=== PATIENT | female | born 1995 | race Caucasian/White ===

== ENCOUNTER 2018-03-18 23:31 | Emergency (ER) | payer MEDICAID ==
[2018-03-18] MEDS ORDERED: NS 1,000 ML IV ONE (23:41)
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
[2018-03-19] MEDS ORDERED: IOPAMIDOL (ISOVUE-300) 100 ML BTL ONE (00:14)
[2018-03-19] MEDS ORDERED: HYDROmorphONE/DILAUDID 2 MG/ML INJ IVP ONE (00:14)
[2018-03-19] MEDS ORDERED: HYDROmorphONE/DILAUDID 1 MG/ML INJ ONE (00:17)
[2018-03-19 00:21] LABS: PLATELET COUNT 388 10^3/uL (150-400)
[2018-03-19] MEDS ORDERED: HYDROmorphONE/DILAUDID 1 MG/ML INJ IVP ONE (00:57)
[2018-03-19] MEDS ORDERED: KETOROLAC 15 MG/1 ML SDV IVP ONE (01:20)
[2018-03-19] MEDS ORDERED: ONDANSETRON 4 MG/2 ML VIAL IVP ONE (03:03)
[2018-03-19 03:43] VITALS: BP 138/72
== END 2018-03-19 03:42 | disposition home or self-care (01) ==
DX: K59.01 Slow transit constipation (principal); E86.9 Volume depletion, unspecified; Z91.040 Latex allergy status
CPT/HCPCS: 96374; J1170; J1885; J2405; Q9967

== ENCOUNTER 2018-04-16 | Emergency (ER) | payer MEDICAID | END 2018-04-16 17:51 | disposition home or self-care (01) | DX: R10.11 Right upper quadrant pain (principal) ==

== ENCOUNTER 2018-04-21 10:19 | Emergency (ER) | payer MEDICAID ==
[2018-04-21 11:09] LABS: PLATELET COUNT 402 10^3/uL (150-400)
[2018-04-21 12:52] VITALS: BP 116/77
--- NOTE | 2018-04-21 13:11 | EDPHY ---
H & P Time Seen by Provider: 04/21/18 10:24 HPI/ROS: CHIEF COMPLAINT: Abdominal pain HISTORY OF PRESENT ILLNESS: 23-year-old female presents to the emergency department with abdominal pain. She states that she has had ongoing abdominal pain for years however worse over last 1 week. She was seen in the emergency department 1 week ago and had imaging studies which was within normal limits. She denies urinary symptoms. She has also been seen by her primary care provider 2 days ago and is scheduled to see a factory expert. She currently denies pain or chest or difficulty breathing. No vomiting. She has had some diarrhea and loose bowel movements over last 1 week. No antibiotics. No recent travel. No known ill contacts. REVIEW OF SYSTEMS: Constitutional: No fever, no chills. Eyes: No double or blurry vision. ENT: No sore throat. Respiratory: No cough, no shortness of breath. Cardiac: No chest pain. Gastrointestinal: Abdominal pain. No vomiting. Diarrhea Genitourinary: No dysuria. Musculoskeletal: No neck or back pain. Skin: No rashes. Neurological: No headache. Past Medical/Surgical History: Traumatic brain injury, left-sided deficits chronic Social History: recently moved here from [place] Smoking Status: Never smoked Physical Exam: General Appearance: Alert, no distress. Afebrile. Eyes: Pupils equal and round. Extraocular motions are all intact. ENT: Mouth: Mucous membranes moist. Respiratory: No wheezing, rhonchi, or rales, lungs are clear to auscultation. Cardiovascular: Regular rate and rhythm. Gastrointestinal: Abdomen is soft and nontender, no masses, no rebound or guarding, bowel sounds normal. Mild bilateral CVA tenderness worse on the right compared to the left. Neurological: Alert and oriented x 3, cranial nerves II through XII grossly intact Skin: Warm and dry, no rashes. Musculoskeletal: Nontender to palpate along the cervical, thoracic or lumbar spine. Neck is supple. Extremities: Full range of motion and no peripheral edema. Psychiatric: Patient is oriented X 3, there is no agitation. Constitutional: Initial Vital Signs Temperature (C) 36.8 C 04/21/18 10:26 Heart Rate 82 04/21/18 10:26 Respiratory Rate 18 04/21/18 10:26 Blood Pressure 93/65 L 04/21/18 10:26 O2 Sat (%) 96 04/21/18 10:26 O2 Delivery Mode Room Air Allergies/Adverse Reactions: latex Allergy (Verified 04/21/18 10:24) Home Medications: Medication Instructions Recorded Dicyclomine [Bentyl 20 MG (*)] 20 mg PO QID PRN #15 tab 04/16/18 Hydrocodone/APAP 5/325 [[place] 1 - 2 tab PO Q4 PRN #10 tab 04/16/18 5/325 (RX)] Cephalexin [Keflex] 500 mg PO QID #40 cap 04/21/18 Medical Decision Making - Diagnostics Imaging Results: Imaging Impressions Abdomen X-Ray 04/21/18 11:50 Impression: Constipation. No obstruction. Imaging: I viewed and interpreted images myself ED Course/Re-evaluation: 23-year-old female presents to the emergency department with chronic abdominal pain. Patient's abdominal exam is unremarkable. I do not think repeat CT imaging is indicated. Do not think ultrasound is indicated. Urinalysis reveals pyelonephritis. Urine cultures pending. She was given 1 g of ceftriaxone IV and will be discharged with oral Keflex. Remainder laboratory exams are unremarkable. She has a scheduled appointment with factory expert in a few weeks. manager transfusion will see if they are able to arrange for a sooner follow-up appointment. Patient feels comfortable being discharged home. She had no episodes of vomiting in the emergency department. She is hungry and eating and drinking in the emergency department. X-rays were obtained per her request which revealed evidence of constipation without evidence of obstruction. She was encouraged to use high-fiber diet. Differential Diagnosis: Including but not limited to constipation, gastroenteritis, GERD, peptic ulcer disease, cholecystitis, cholelithiasis - Data Points Laboratory Results: Laboratory Results 04/21/18 10:35 04/21/18 10:35 04/21/18 04/21/18 04/21/18 11:12 10:35 10:35 WBC RBC Hgb Hct MCV MCH MCHC RDW Plt Count MPV Neut % (Auto) Lymph % (Auto) [place] % (Auto) Eos % (Auto) Baso % (Auto) Nucleat RBC Rel Count Absolute Neuts (auto) Absolute Lymphs (auto) Absolute Monos (auto) Absolute Eos (auto) Absolute Basos (auto) Absolute Nucleated RBC Immature Gran % Immature Gran # Sodium 142 mEq/L mEq/L (135-145) Potassium 4.5 mEq/L mEq/L (3.3-5.0) Chloride 109 mEq/L mEq/L (97-110) Carbon Dioxide 22 mEq/l mEq/l (22-31) Anion Gap 11 mEq/L mEq/L (8-16) BUN 10 mg/dL mg/dL (7-23) Creatinine 0.7 mg/dL mg/dL (0.6-1.0) Estimated GFR > 60 Glucose 88 mg/dL mg/dL (70-100) Calcium 10.0 mg/dL mg/dL (8.5-10.4) Beta HCG, Qual NEGATIVE Urine Color [place] Urine Appearance MODERATELY TURBID Urine pH 5.0 (5.0-7.5) Ur Specific [place] 1.024 (1.002-1.030) Urine Protein NEGATIVE (NEGATIVE) Urine Ketones NEGATIVE (NEGATIVE) Urine Blood NEGATIVE (NEGATIVE) Urine Nitrate NEGATIVE (NEGATIVE) Urine Bilirubin NEGATIVE (NEGATIVE) Urine Urobilinogen 2.0 EU H EU (0.2-1.0) Ur Leukocyte Esterase 3+ H (NEGATIVE) Urine RBC 10-15 /hpf H /hpf (0-3) Urine WBC 50-182 /hpf H /hpf (0-3) Ur Epithelial Cells 3+ /lpf H /lpf (NONE-1+) Urine Bacteria 2+ /hpf H /hpf (NONE SEEN) Urine Mucus TRACE /lpf /lpf (NONE-1+) Urine Glucose NEGATIVE (NEGATIVE) 04/21/18 10:35 WBC 7.72 10^3/uL 10^3/uL (3.80-9.50) RBC 4.77 10^6/uL 10^6/uL (4.18-5.33) Hgb 13.3 g/dL g/dL (12.6-16.3) Hct 41.0 % % (38.0-47.0) MCV 86.0 fL fL (81.5-99.8) MCH 27.9 pg pg (27.9-34.1) MCHC 32.4 g/dL g/dL (32.4-36.7) RDW 17.3 % H % (11.5-15.2) Plt Count 402 10^3/uL H 10^3/uL (150-400) MPV 10.6 fL fL (8.7-11.7) Neut % (Auto) 51.0 % % (39.3-74.2) Lymph % (Auto) 36.8 % % (15.0-45.0) [place] % (Auto) 7.3 % % (4.5-13.0) Eos % (Auto) 4.3 % % (0.6-7.6) Baso % (Auto) 0.5 % % (0.3-1.7) Nucleat RBC Rel Count 0.0 % % (0.0-0.2) Absolute Neuts (auto) 3.94 10^3/uL 10^3/uL (1.70-6.50) Absolute Lymphs (auto) 2.84 10^3/uL 10^3/uL (1.00-3.00) Absolute Monos (auto) 0.56 10^3/uL 10^3/uL (0.30-0.80) Absolute Eos (auto) 0.33 10^3/uL 10^3/uL (0.03-0.40) Absolute Basos (auto) 0.04 10^3/uL 10^3/uL (0.02-0.10) Absolute Nucleated RBC 0.00 10^3/uL 10^3/uL (0-0.01) Immature Gran % 0.1 % % (0.0-1.1) Immature Gran # 0.01 10^3/uL 10^3/uL (0.00-0.10) Sodium Potassium Chloride Carbon Dioxide Anion Gap BUN Creatinine Estimated GFR Glucose Calcium Beta HCG, Qual Urine Color Urine Appearance Urine pH Ur Specific [place] Urine Protein Urine Ketones Urine Blood Urine Nitrate Urine Bilirubin Urine Urobilinogen Ur Leukocyte Esterase Urine RBC Urine WBC Ur Epithelial Cells Urine Bacteria Urine Mucus Urine Glucose Medications Given: Discontinued Medications Ceftriaxone Sodium/Dextrose (Rocephin 1 Gm (Premix)) 50 mls @ 100 mls/hr IV EDNOW ONE PRN Reason: Protocol Stop: 04/21/18 12:19 Last Admin: 04/21/18 12:01 Dose: 50 mls Departure - Departure Disposition: Home, Routine, Self-Care Clinical Impression: Acute pyelonephritis Condition: Good Instructions: Cephalexin (By mouth), Kidney Infection (ED) Additional Instructions: Keflex 500 mg 4 times daily for 10 days. Call [phone] for the results of your urine culture in 48 hr. Return to the emergency department sooner if he developed fever, vomiting, worsening back pain, abdominal pain, or if you feel worse in any way. Follow-up with [facility] as discussed. They should be calling you on Monday to arrange for a sooner follow-up appointment. If you are having trouble obtaining this appointment, please call our housing case manager in the emergency department. Referrals: Maureen Bernal MD [[facility] Primary Care Provider] - 2-3 days, if not improved ( Primary care provider telephone solicitor supervisor) Prescriptions: Cephalexin [Keflex] 500 mg PO QID #40 cap
--- NOTE | 2018-04-21 15:05 | ASMTCMCOM ---
CM Note CM Note Notes: Pt presented to the Emergency Department with continued abdominal/back pain. Asked to see pt by ROD Argueta regarding follow up appointment with [facility]. Met with pt - pt to see Dr. Owusu on May 14. Pt already saw her PCP last and has a referral for her upcoming GI appt. Kari requesting CM move GI appointment up from May 14 given pt's continued symptoms and three recent ED visits. Call placed to [facility] . Left message with answering service requesting [facility] call pt on Monday04/23/18 to move pt appointment to soonest date possible. Update provided to pt. Pt also provided with [facility] and Case Management's phone numbers to call for any further issues changing appointment date/time. Pt verbalized understanding. CM available for any further issues or concerns. Date Signed: 04/21/2018 03:03 PM Electronically Signed By:Mayi Ramon RN
== END 2018-04-21 13:21 | disposition home or self-care (01) ==
DX: N10 Acute pyelonephritis (principal)
CPT/HCPCS: 96374; J0696

== ENCOUNTER 2018-06-13 08:35 | Emergency (ER) | payer MEDICAID ==
[2018-06-13] MEDS ORDERED: MAG HYDROX/AL HYDROX/SIMETH 30 ML UDCUP PO ONE (09:06)
[2018-06-13] MEDS ORDERED: LIDOCAINE 2% VISCOUS 15 ML UDCUP PO ONE (09:06)
[2018-06-13] MEDS ORDERED: HYOSCYAMINE SULFATE 0.125 MG TAB PO ONE (09:06)
[2018-06-13] MEDS ORDERED: ONDANSETRON 4 MG/2 ML VIAL IVP ONE (09:06)
[2018-06-13] MEDS ORDERED: NS 1,000 ML IV ONE (09:06)
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
[2018-06-13 09:15] LABS: PLATELET COUNT 346 10^3/uL (150-400)
[2018-06-13] MEDS ORDERED: KETOROLAC 15 MG/1 ML SDV IVP ONE (09:38)
[2018-06-13] MEDS ORDERED: MAGNESIUM CITRATE 300 ML BOTTLE PO ONE (10:09)
[2018-06-13 10:21] VITALS: BP 100/63
== END 2018-06-13 10:26 | disposition home or self-care (01) ==
DX: K59.00 Constipation, unspecified (principal)
CPT/HCPCS: 96374; J1885; J2405

== ENCOUNTER → 2018-09-13 | Outpatient (CLI) | payer MEDICAID | LOC: FIMAGING 10:05 | PROVIDERS: ATTEND Physician Assistant | DX: R10.13 Epigastric pain (principal) ==

== ENCOUNTER 2018-10-02 17:31 | Emergency (ER) | payer MEDICAID ==
[2018-10-02] MEDS ORDERED: METOCLOPRAMIDE 10 MG/2 ML VIAL IVP ONE (19:02)
[2018-10-02] MEDS ORDERED: NS 1,000 ML IV ONE (19:02)
[2018-10-02] MEDS ORDERED: KETOROLAC 15 MG/1 ML SDV IVP ONE (19:03)
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
[2018-10-02 19:25] LABS: PLATELET COUNT 342 10^3/uL (150-400)
[2018-10-02] MEDS ORDERED: PROMETHAZINE 25 MG PREPACK #4 BTL TAKEHOME ONE (20:02)
[2018-10-02 20:33] VITALS: BP 107/70
== END 2018-10-02 20:32 | disposition home or self-care (01) ==
DX: R11.2 Nausea with vomiting, unspecified (principal); R10.10 Upper abdominal pain, unspecified
CPT/HCPCS: 96374; J1200; J1885; J2765